=== PATIENT | born 2000 | race Caucasian/White ===

== ENCOUNTER 2022-04-09 21:23 | Emergency (ER) | payer BC, SELFPAY ==
--- NOTE | 2022-04-09 21:29 | MHC.CARE ---
CARE Team recieved a arely from [facility], pt prefers pronouns they/them. Pt arrives by ambulance on a section 12. Pt's friends had concerns with pt's suicidality and PD became involved. Pt recanted statements at that time and pt became involved with construction person clinician. Pt made a safety plan with the construction person clinician and was told to check in. Pt's friends contacted the construction person clinician as pt was making more concerning suicidal threats to OD on pills and or jump off a building. PD arrived to pt's dorm around 4pm and 7pm friends called with more concerns. Pt last saw psychiatrist on Mar 01 and is on Lexapro 20mg. [facility] [address] [phone]
[2022-04-09 21:32] VITALS: BP 116/68; PULSE 77; RESP 14; TEMP 37.6; O2SAT 99; BMI 24.2
[2022-04-09 21:47] VITALS: BP 116/68; PULSE 77; RESP 14; TEMP 37.6; O2SAT 99
[2022-04-09 22:11] LABS: MANUAL DIFF FLAG NO
--- NOTE | 2022-04-09 22:13 | PC.NURSE ---
Pt was brought in by EMS from [facility]. Pt has been making SI statements to friends. Loli told authorities as well as the school counseling center. 911 was called and a section 12 was filed on scene. Pt states that they are currently going through a break up with their partner. Per EMS, pt stated she couldn't stay in the dorms for another night or she would kill herself. Pt has plans of jumping off of a very high building or overdosing on pills. Pt is calm and cooperative, no evidence of self harm, pleasant in manner.
[2022-04-09 22:15] LABS: Appearance Urine Clear; Color Urine Yellow; Glucose Urine UA Negative (Negative); Leukocyte Esterase Urine Trace (Negative); Nitrite Urine Negative (Negative); UMIC TRIGGER UACC YES; Urine Blood Negative (Negative); Urine Ketones 40 mg/dL (Negative); Urine Protein Negative (Neg-Trace)
[2022-04-09 22:17] LABS: UPreg QC Valid YES; Urine Pregnancy NEGATIVE (NEGATIVE)
[2022-04-09 22:22] LABS: Basophils Percent Auto 0.2 % (0-2); Eosinophils Absolute Auto 0.2 X10*3/uL (0.0-0.4); Eosinophils Percent Auto 1.5 % (0-4); Hematocrit 39.9 % (37.0-47.0); Hemoglobin 13.4 g/dl (12.0-16.0); Imm Gran Abs Auto 0.03 X10*3/uL (0.00-0.03); Imm Gran Pct Auto 0.3 % (0.0-0.4); Lymphocytes Absolute Auto 2.2 X10*3/uL (1.2-4.9); Lymphocytes Percent Auto 21.1 % (20-40); Mean Corpuscular HGB Conc 33.6 g/dl (31.0-35.0); Mean Corpuscular Volume 86.4 fL (80.0-98.0); Mean Platelet Volume 9.6 fL (9.4-12.3); Monocytes Absolute Auto 0.7 X10*3/uL (0.1-1.2); Neutrophils Absolute Auto 7.1 x10*3/uL (2.0-8.3); Neutrophils Percent Auto 69.9 % (45-73); Platelet Count 296 X10*3/uL (160-400); Red Blood Count 4.62 X10*6/uL (4.20-5.50); White Blood Count 10.2 X10*3/uL (4.8-10.8)
[2022-04-09 22:26] LABS: Bacteria Urine 3+ (None Seen); Hyaline Casts Urine 0-2 /LPF (0-2); RBC Urine 0-2 /HPF (0-2); WBC Urine 0-5 /HPF (0-5)
[2022-04-09 22:31] LABS: COVID-19 Test Negative (Negative)
[2022-04-09 22:31] LABS: Alanine Aminotransferase 21 U/L (0-31); Albumin Level 4.6 g/dL (3.5-5.0); Alkaline Phosphatase 52 U/L (39-117); Anion Gap 15 (12-20); Aspartate Amino Transferase 21 U/L (5-31); Bilirubin Total 0.9 mg/dL (0.0-1.0); Blood Urea Nitrogen 13 mg/dL (9-16); Calcium 9.6 mg/dL (8.4-10.2); Carbon Dioxide 24 mmol/L (22-29); Chloride 104 mmol/L (96-108); Creatinine Clr Calc Pharmacy 110.5; Estimated Glomerular Filt Rate > 60; Ethanol < 10 mg/dL; Glucose Random 109 mg/dL (60-115); Magnesium 1.7 mg/dL (1.6-2.6); Potassium 3.6 mmol/L (3.3-5.1); Sodium 139 mmol/L (135-145); Total Protein 7.1 g/dL (6.5-8.0)
--- NOTE | 2022-04-09 22:31 | ED_ITS ---
HPI - Psych General Chief Complaint: Psychiatric Symptoms Stated Complaint: Crisis Time Seen by Provider: 04/09/22 21:31 Source: patient and EMS Mode of arrival: EMS Limitations: no limitations History of Present Illness HPI Narrative: 21-year-old female presents to the emergency department with suicidal thoughts p karolyn patient tells me these have been going on for 1 day, reports she recently had a break-up with her significant other. Tells me she has a plan to jump off a very tall building. Reports she intermittently has suicidal thoughts however has never acted on them. Reports anxiety and depression as well. She comes in on a Section 12 from the [employer]. Denies visual, auditory and tactile halluci nations. Denies drugs, alcohol and tobacco. Denies medical complaints. Related Data Allergies Allergy/AdvReac Type Severity Reaction Status Date / Time Unable to Assess Allergy Unverified 04/09/22 21:35 Review of Systems Review of Systems: Constitutional : No Fever, No Chills ENT/Mouth : No Ear Pain, No Nasal Congestion, No sore throat Eyes: No Eye Pain, No Swelling, No Redness Cardiovascular : No Chest Pain, No SOB Respiratory : No Cough, No Sputum, No Dyspnea Gastrointestinal : No Nausea, No Vomiting, No Diarrhea, No Hematochezia, No M randi Genitourinary : No Dysuria, No Urinary Frequency, No Hematuria Musculoskeletal : No Myalgias Skin : No Skin Lesions, No rash Neuro : No Weakness, No Numbness, No Paresthesias, No Dizziness, No Headache Psych : positive Anxiety, positive Depression, positive SI/HI All other systems reviewed and are negative Yes all other systems are reviewed and are negative [facility] Past Medical History Attestation statement: The following information was validated with the patient. Source: old records reviewed and nursing notes reviewed Social History Social History Alcohol intake: never Smoked in Last 30 Days: No Use of substances other than those prescribed or required for medical reasons: No Advance Directives: No Advance Directives Information Provided: No Patient : No Physical Exam Vital Signs: Vital Signs: Last Vital Signs Temp 99.6 F 04/09/22 21:47 Pulse 77 04/09/22 21:47 Resp 14 04/09/22 21:47 BP 116/68 04/09/22 21:47 Pulse Ox 99 04/09/22 21:47 O2 Del Method 04/09/22 21:47 BMI result Body Mass Index 24.2 vss Appearance: Alert.? Oriented X3.? No acute distress.? Head: Normocephalic, atraumatic, no step-offs or deformities Eyes: Pupils equal, round and reactive to light.? ENT: Pharynx normal.? Neck: Normal inspection.? Neck supple.? CVS: Normal heart rate and rhythm.? Pulses normal.? Respiratory: No respiratory distress.? Breath sounds normal.? Abdomen: Soft and nontender.? Skin: Skin warm and dry.? Normal skin color.? Normal skin turgor.? Extremities: No lower extremity edema.? No calf ttp. 5/5 strength to bilateral upper and lower extremitis Psych: Flat affect Neuro: Oriented X 3.? No motor deficit.? No sensory deficit. CN 2-12 intact Course Reevaluation(s) Reevaluation #1: CBC appears to be within normal limits. Chemistry with no acute findings. Urine clean, negative. Ethanol negative. COVID negative. At this time patient will be placed into physician observation to allow more time to be evaluated by the behavioral health team at time observation started patient common cooperative no acute distress will continue to monitor Time: 22:34 MDM - Psych MDM Narrative Medical decision making narrative: 2199 21-year-old female presents with suicidal ideations with plan to jump off tall building, reports relationship issues. Physical exam benign Plan at this time medical clearance evaluation by the behavioral health team Medical Records Attestation: I reviewed the patient's medical records. Lab Data Attestation: I reviewed the patient's lab results. Result diagrams: 04/09/22 22:03 04/09/22 22:03 Labs: Lab Results 04/09/22 04/09/22 04/09/22 Range/Units 21:50 21:50 22:03 WBC 10.2 (4.8-10.8) X10*3/uL RBC 4.62 (4.20-5.50) X10*6/uL Hgb 13.4 (12.0-16.0) g/dl Hct 39.9 (37.0-47.0) % MCV 86.4 (80.0-98.0) fL MCH 29.0 (27.0-33.0) pg MCHC 33.6 (31.0-35.0) g/dl RDW 12.0 (11.0-16.0) % Plt Count 296 (160-400) X10*3/uL MPV 9.6 (9.4-12.3) fL Immature Gran % (Auto) 0.3 (0.0-0.4) % Neut % (Auto) 69.9 (45-73) % Lymph % (Auto) 21.1 (20-40) % Hendricks % (Auto) 7.0 (2-11) % Eos % (Auto) 1.5 (0-4) % Baso % (Auto) 0.2 (0-2) % Lymph # (Auto) 2.2 (1.2-4.9) X10*3/uL Hendricks # (Auto) 0.7 (0.1-1.2) X10*3/uL Eos # (Auto) 0.2 (0.0-0.4) X10*3/uL Baso # (Auto) 0.0 (0.0-0.2) X10*3/uL Abs Immat Gran (auto) 0.03 (0.00-0.03) X10*3/uL Absolute Neuts (auto) 7.1 (2.0-8.3) x10*3/uL Absolute Nucleated RBC 0.000 (0.0-0.012) X10*3/uL Nucleated RBC % (auto) 0.0 (0.0-0.2) /100WBC Urine Color Yellow Urine Appearance Clear Urine pH 6.0 (5.0-9.0) Ur Specific [place] 1.020 (1.005-1.025) Urine Protein Negative (Neg-Trace) mg/dL Urine Glucose (UA) Negative (Negative) mg/dL Urine Ketones 40 (Negative) mg/dL Urine Blood Negative (Negative) Urine Nitrite Negative (Negative) Ur Leukocyte Esterase Trace H (Negative) Urine RBC 0-2 (0-2) /HPF Urine WBC 0-5 (0-5) /HPF Ur Squamous Epith Cells 6-10 (0-2) /HPF Urine Bacteria 3+ (None Seen) Hyaline Casts 0-2 (0-2) /LPF Urine Test NEGATIVE (NEGATIVE) Critical Care Time Critical Care Time Critical Care Time: No Discharge Plan Discharge Clinical Impression: Depression, Acute anxiety, Chronic schizophrenia Patient Disposition: Still a Patient
[2022-04-09 22:37] LABS: Amphetamine Screen Urine Not Detected (Not Detect); Barbiturates, Urine Not Detected (Not Detect); Benzodiazepines Screen Urine Not Detected (Not Detect); Cannabinoid Screen Urine Not Detected (Not Detect); Cocaine Screen Urine Not Detected (Not Detect); Fentanyl, urine Not Detected (Not Detect); Opiate Screen Urine Not Detected (Not Detect); Phencyclidine Screen Urine Not Detected (Not Detect)
--- NOTE | 2022-04-09 22:59 | PC.NURSE ---
Med Rec completed at this time. Pt waiting to see CARE team
[2022-04-10 06:41] VITALS: BP 117/66; PULSE 87; RESP 16; TEMP 36.4; O2SAT 99
--- NOTE | 2022-04-10 15:53 | PC.NURSE ---
per RUFINO cerrato, patient will be here overnight as her college does not want her back until at least Tuesday so that a safety plan can be in place. She had a plan previously and within 2 hours she was back here again. RUFINO stated that no one is coming in tonight and tomorrow someone else will come and revaluate. she is not happy but understands.
--- NOTE | 2022-04-10 17:52 | MHC.CARE ---
Michelle identifies They/Them and preferred name is Leon, they was seen for CARE team assessment on 04/09/22 and was made a follow up due to they not being able to safety plan with clinician. CARE team met with they and informed her follow up will be done tomorrow, CARE team also discussed [employer] counselors concerns with her returning back to campus. She remains on section 12, please call Adrianna Salinas (counselor) @ [phone] for collateral information as she is requesting they not return to campus prior to Tuesday so safety plan can be put in place.
--- NOTE | 2022-04-10 19:35 | PC.NURSE ---
Pt using phone in room, pt in no apparent distress.
[2022-04-11 02:54] VITALS: BP 120/55; PULSE 112; RESP 15; TEMP 36.4; O2SAT 98
--- NOTE | 2022-04-11 04:17 | PC.NURSE ---
Pt sleeping at this time respirations normal.
[2022-04-11 07:00] VITALS: RESP 16
--- NOTE | 2022-04-11 07:26 | PC.NURSE ---
Addendum entered by Yadira Wright 04/11/22 13:37: Per care team: plan to d/c home. Original Note: Report taken from overnight shift. No acute incidents. Plan is for Care follow up this AM. Pt showered during shift change
[2022-04-11] MEDS: Escitalopram Oxalate 20 MG TABLET PO (08:18)
--- NOTE | 2022-04-11 13:42 | MHC.CARE ---
CARE team met with pt for risk assessment. Pt was observed sitting at desk in pod room, completing homework. Pt was alert and oriented. They were cooperative and engaged. Pt was able to contract for safety, stating they felt much better today . Pt denies any SI/HI/AH/VH. Pt reports SI secondary to break up with partner. They denied any past suicide attempts or current plan. Pt reports they are currently seeing therapist, Migue Jackson, of [address] [place] [address]. They have a scheduled session on 04/15. Pt resumed medications while in ED. Pt reports running out of medication on Tuesday prior to presenting to ED. CARE team spoke to school counselor, Adrianna, and scheduled follow up appointment with her tomorrow at 10am. Pt will be discharged home where they live with roommate and report having a supportive group of friends. Adrianna will also be informing school CDC, Dexter, of pt's d/c for f/u with pt tonight. CARE team clinician will check in with pt tonight. This disposition was discussed with and agreed upon by on-call clinician, Elizabeth Stephens. Pt agreeable with d/c plan
== END 2022-04-11 15:16 | disposition home or self-care (01) ==
PROVIDERS: Physician Assistant; Emergency Provider Student in an Organized Health Care Education/Training Program
DX: F33.1 Major depressive disorder, recurrent, moderate (principal); F25.9 Schizoaffective disorder, unspecified; R45.851 Suicidal ideations; F41.1 Generalized anxiety disorder; F43.0 Acute stress reaction; Z20.822 Contact with and (suspected) exposure to COVID-19; Z79.899 Other long term (current) drug therapy
CPT/HCPCS: 36415; 80053; 80307; 81001; 81025; 82077; 83735; 85025; 87086; 87635; 99285